=== PATIENT | female | born 1980 | race Caucasian/White ===

== ENCOUNTER 2019-04-25 02:16 | Observation (INO) ==
--- NOTE | 2019-04-25 02:51 | ERNOTE ---
<Bladimir Rubin - Last Filed: 04/25/19 07:51> Medical Problem HPI - General Chief Complaint: Drug Overdose Time Seen by Provider: 04/25/19 02:28 Source: patient, family Exam Limitations: clinical condition - Immun/Allergies/Home Medications Immunizations: IMMUNIZATION HX Immunizations Up to Date Yes History of Influenza Vaccine No Allergies/Adverse Reactions: Allergies No Known Drug Allergies Allergy (Verified 04/25/19 02:26) Home Medications: HOME MEDICATIONS Escitalopram Oxalate [Lexapro] 20 mg PO DAILY 01/01/16 [Last Taken Unknown] - History of Present History Narrative: Patient brought in by her mother stating the patient take an overdose of her medications approximately an hour [employer]OUT WORK[employer]. Patient states she has taken 8 of her 150 mg trazodone. If on patient is asked directly she does not give a straight answer on why she took them or what effect she expected them to have. she has been hearing voices lately but cannot really state what those voices are saying. Her mother states that lately she has not been recognizing her parents or others as who they are and even states that she does not know who she herself is some days. Timing: getting worse Severity: moderate Review of Systems - Review of Systems Constitutional: Present: recent illness - just not feeling well.. Absent: fever EYE: Absent: vision changes ENT: Absent: nose congestion, nasal drainage Respiratory: Present: shortness of breath - mild, cough Cardiology: Absent: chest pain Gastrointestinal/Abdominal: Present: constipation. Absent: nausea, vomiting, abdominal pain Genitourinary: Absent: frequency, pain, dysuria Musculoskeletal: Present: back pain - chronic Skin: Present: rash - a few red spots on her neck, getting better. Neurological: Absent: headache, dizziness/light-headedness Endocrine: Absent: excessive sweating Hematologic/Lymphatic: Absent: easy bruising Psych: Present: See HPI, depressed, emotional problems Medical History (Last Reviewed 04/25/19 @ 02:47 by Bladimir Rubin DO) Anxiety Hx of head injury Surgical History: Surgical History (Last Reviewed 04/25/19 @ 02:47 by Bladimir Rubin DO) History of rib fracture (Acute) Hx of tonsillectomy (Acute) Family History: Family History (Last Reviewed 04/25/19 @ 02:47 by Bladimir Rubin DO) Father Hypertension Social History: (Last Reviewed 04/25/19 @ 02:47 by Bladimir Rubin DO) Tobacco: Smoking Status: Current every day smoker Smoking cigarettes per day: 10 Alcohol: alcohol intake: former Substance Use: substance use type: marijuana, amphetamines Physical Exam - Physical Exam General Appearance: Present: wd/wn, no apparent distress, other - Patient is alert although she keeps her eyes closed unless asked to open them. Head Exam: Present: normal inspection, no evidence of injury Eye Exam: PERRL: bilateral - Although pupils are rather small, EOMI: bilateral Ears, Nose, Throat: Present: normal ENT inspection, normal pharynx Neck: Present: normal inspection, nontender, supple, full range of motion Respiratory: Present: no respiratory distress, normal breath sounds, no accessory muscle use, chest nontender, lungs clear Cardiovascular/Chest: Present: regular rate, rhythm, systolic murmur - 08/22 Gastrointestinal/Abdominal: Present: normal bowel sounds, nontender, nondistended, soft Extremity Exam: Present: normal inspection, normal range of motion, no edema Neurological Exam: Present: 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 Somewhat tangential conversations. Skin Exam: Present: warm/dry, other - Few small papules on the left side of the patient's neck no vesicles Lymphatic Exam: Present: no adenopathy Progress - Results and Orders Patient's Lab Results:: I have reviewed the patient's lab results. - Vital Signs Patient's Vital Signs:: I have reviewed the patient's vital signs. Vital Signs: Vital Signs 04/25/19 02:22 Temperature 36 C Pulse Rate 87 Respiratory Rate 16 Blood Pressure 154/83 H O2 Sat by Pulse Oximetry 100 - EKG EKG #1 EKG: NSR, nonspecific ST T wave changes, other - QT long at 445 - X-Ray X-Ray #1 X-Ray: chest Interpretation: Interp. by me X-ray Comments: No infiltrate or effusion - Progress/Reassessment Chief Complaint: Drug Overdose Progress:: Improved - Transfer of Care Physician Sign Out: Bladimir Rubin Receiving Physician: Melvin Merino Pending Results: Physician/consult arrival Expected Disposition: Transfer Plan - Plan Plan: [facility] evaluation and probable transfer to psychiatric facility. Departure Clinical Impression: Hallucinations Overdose Qualifiers: Encounter type: initial encounter Injury intent: undetermined intent Qualified Code(s): T50.904A - Poisoning by unspecified drugs, medicaments and biological substances, undetermined, initial encounter - Departure Disposition: Still a patient Condition: Good <Melvin Merino - Last Filed: 04/25/19 13:14> Medical Problem HPI - Immun/Allergies/Home Medications Immunizations: IMMUNIZATION HX Immunizations Up to Date Yes History of Influenza Vaccine No Medical History (Last Reviewed 04/25/19 @ 02:47 by Bladimir Rubin DO) Anxiety Hx of head injury Surgical History: Surgical History (Last Reviewed 04/25/19 @ 02:47 by Bladimir Rubin DO) History of rib fracture (Acute) Hx of tonsillectomy (Acute) Family History: Family History (Last Reviewed 04/25/19 @ 02:47 by Bladimir Rubin DO) Father Hypertension Social History: (Last Reviewed 04/25/19 @ 02:47 by Bladimir Rubin DO) Tobacco: Smoking Status: Current every day smoker Smoking cigarettes per day: 10 Alcohol: alcohol intake: former Substance Use: substance use type: marijuana, amphetamines Progress - Results and Orders Patient's Lab Results:: I have reviewed the patient's lab results. - Vital Signs Patient's Vital Signs:: I have reviewed the patient's vital signs. Vital Signs: Vital Signs 04/25/19 05:04 04/25/19 05:23 04/25/19 05:49 Pulse Rate 80 78 79 Respiratory Rate 16 14 18 Blood Pressure 108/60 104/58 100/57 O2 Sat by Pulse Oximetry 97 96 97 04/25/19 06:33 04/25/19 07:38 04/25/19 08:18 Pulse Rate 72 102 H 81 Respiratory Rate 14 21 H 13 Blood Pressure 101/56 105/61 102/49 O2 Sat by Pulse Oximetry 97 96 95 04/25/19 09:09 Pulse Rate 85 Respiratory Rate 17 Blood Pressure 99/51 O2 Sat by Pulse Oximetry 97 - EKG EKG #2 EKG: NSR EKG read: Interp. by me EKG Comments: NSR ate 70. Patient still with prolonged QT. - Progress/Reassessment Progress Note-Subjective: 04/25/19 13:06 Patient checked out to me by Dr Rubin at am shift change. ROSALINDA felt she needed admission but she could not be cleared due to somnolence and ongoing prolonged QT. I spoke with her and she would not open her eyes but she answered my questions. She cannot be cleared throughout ED and needs observation. Poison control contacted. I do not feel she needs bicarb drip at this time and she is asymptomatic and QT is just over 100. Bicarb drip indicated until QT less sangeeta 100, at this time QT 101 so I think ongoing observation is indicated. D/W Dr Moody who is agreeable to admit to SCU. Patient understands. [facility]INDA is looking for placement. Please see Dr Rubin's note for full H&P. 04/25/19 13:14
[2019-04-25 02:55] LABS: Hematocrit 37.3 % (37.0-47.0); Hemoglobin 12.4 gm/dL (12.5-16.0); Mean Cell Volume 96.6 fl (78-100); Mean Corpuscular Hemoglobin 32.1 pg (27-31); Mean Corpuscular Hgb Conc 33.2 g/dl (32-36); Mean Platelet Volume 10.1 fl (8-12.5); Neutrophil # 4.7 K/mm3 (1.3-6.0); Neutrophil % 51.1 % (42-75.0); Platelet Count 310 K/mm3 (150-450); Red Blood Count 3.86 M/mm3 (4.2-5.4); Red Cell Distribution Width 12.8 % (11.5-14.0); White Blood Count 9.2 K/mm3 (4.0-10.5)
[2019-04-25 03:05] LABS: Urine Appearance Clear (CLEAR); Urine Bacteria None Seen; Urine Bilirubin Negative (NEGATIVE); Urine Blood Negative /ul (NEGATIVE); Urine Color Yellow; Urine Ketone Negative (NEGATIVE); Urine Nitrite Negative (NEGATIVE); Urine Protein Negative (NEGATIVE); Urine RBC None Seen /hpf (0-5); Urine Urobilinogen Normal (NORMAL); Urine WBC 0-5 /hpf (0-5); Urine pH 6.5 pH (5.0-7.0)
[2019-04-25 03:08] LABS: ALT 9 U/L (19-67); AST 10 U/L (0-48); Albumin * 3.5 gm/dl (3.4-5.0); Alkaline Phosphatase * 62 U/L (50-170); Anion Gap 10.2 mmol/L (6.8-13.8); BUN/Creatinine Ratio 10.3 (9.0-21.6); Bilirubin, Total 0.2 mg/dL (0.0-1.1); Blood Urea Nitrogen 8 mg/dL (3-23); Ca. Corrected For Albumin 7.7 mg/dL (8.4-10.2); Calcium * 7.6 mg/dL (7.9-10.9); Chloride 106 mmol/L (97-106); Glucose * 139 mg/dL (70-110); Potassium 3.2 mmol/L (3.4-4.6); Salicylate Less than 2.8 mg/dL (2.8-20.0); Sodium 143 mmol/L (132-142); Total Protein 6.4 gm/dL (6.2-8.2)
[2019-04-25 03:10] LABS: Cocaine Ur Negative (NEGATIVE); Urine Barbiturate Negative (NEGATIVE); Urine Benzodiazepines Negative (NEGATIVE); Urine Opiates Negative (NEGATIVE); Urine PCP Negative (NEGATIVE); Urine THC Positive (NEGATIVE)
[2019-04-25 13:10] LABS: Albumin * 3.2 gm/dl (3.4-5.0); Anion Gap 9.6 mmol/L (6.8-13.8); BUN/Creatinine Ratio 11.4 (9.0-21.6); Bilirubin, Total 0.2 mg/dL (0.0-1.1); Ca. Corrected For Albumin 8.5 mg/dL (8.4-10.2); Calcium * 8.2 mg/dL (7.9-10.9); Potassium 3.6 mmol/L (3.4-4.6); Total Protein 5.8 gm/dL (6.2-8.2)
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
--- NOTE | 2019-04-26 14:17 | CONS ---
[facility] - General Date of Service: 04/26/19 Narrative: Gloria is a 38 year old female with a reported history of depression who presented to emergency department yesterday after intentionally overdosing on trazodone. Dr. Moody requested psychiatry consult. Gloria states she has been feeling more and more depressed over the last two years. She notes she has been taking Lexapro, which is prescribed by her primary child care nurse, for several years and it is not helping with depression anymore. She feels depressed every day. She has trouble remembering things and reports she does not feel like herself. She states she has been seeing people and hearing voices that are not there. She notes the voices often belong to people she knows but those people are not present when she hears the voices. She states the voices do not tell her to do things. She states she sees people through windows. She notes the voices and the people she were seeing were faint and blurry at first but seem to be growing stronger as the weeks pass. She started hearing voices and seeing people approximately two weeks ago. She initially states that nobody else can see the people she sees or hear the voices she hears then she states that her father (with whom she is living) has responded to those voices; she also states that she knows other family members can hear the voices but just won't admit to her that they can hear the voices because they want her to think she is crazy. She notes she feels overwhelmed because she just does not know who she is anymore. She notes she has no energy. She began taking Adderall and using methamphetamine several weeks ago to help improve her depression and energy level. She states she stopped using methamphetamine and Adderall approximately 2 weeks ago. Of note, urine was positive for amphetamines and marijuana. She states she sees the people and hears the voices even when she is not using Adderall and methamphetamine. She feels anxious most days. She feels irritable frequently. She has been having trouble sleeping the last few weeks. She notes she has only been sleeping every other night. She denies sustained grandiosity, excessive energy, or rapid speech. She notes she has had a high libido but states that is her baseline. She notes she also smokes marijuana most nights to help with her anxiety. Her appetite is fair. She denies alcohol consumption stating she stopped drinking alcohol several years ago. Gloria states she took an overdose of trazodone last night because she has been having trouble with her memory and mood and she thought that taking an overdose of trazodone would help her to receive treatment. She is not sure if she was attempting to commit suicide when she took the trazodone last night. Gloria denies suicidal ideation today. She denies homicidal ideation. Gloria states she has never been and does not have any children. She notes she has been staying with her father but states she does not feel like she has a home to go to. Gloria states she is not currently receiving treatment from a counselor or other knife setter assembler. She states she has been hospitalized on a psychiatric unit one time approximately 8 years ago after she attempted to commit suicide by cutting her wrist. Per nursing staff, Gloria's mother told nurse today that Gloria told her mother that she wanted to commit suicide. Per nursing staff, Gloria's family also reported that Gloria was to a woman and went through a divorce in the recent past. Since that time, staff report that Gloria's family has noticed a gradual worsening in depression. Staff also report that Gloria told the nurse that Gloria would say anything she needed to say just so she could leave the hospital. Source: patient, RN/MD, RN notes reviewed - History of Present Illness Timing/Duration: getting worse Associated Symptoms: other - fatigue Allergies/Adverse Reactions: Allergies No Known Drug Allergies Allergy (Verified 04/25/19 15:30) Home Medications: Home Medications Medication Instructions Recorded Last Taken Escitalopram Oxalate [Lexapro] 20 mg PO DAILY 01/01/16 Unknown Procedures Application of splint (07/19/99) Contrast arthrogram (07/09/12) Dilation of Left Ureter with Intraluminal Device, Via Natural or Artificial Opening Endoscopic (08/05/15) Drainage of Abdomen Skin, External Approach (01/01/16) Drainage of Genitalia Skin, External Approach (05/01/16) Excision of semilunar cartilage of knee (06/09/00) Fragmentation in Left Ureter, Via Natural or Artificial Opening Endoscopic (08/05/15) Injection of anesthetic into spinal canal for analgesia (05/23/13) Injection of other agent into spinal canal (11/08/12) Injection of steroid (11/08/12) Other local excision or destruction of lesion of joint, shoulder (08/06/12) Other repair of the cruciate ligaments (06/09/00) Removal of Drainage Device from Ureter, Percutaneous Endoscopic Approach (08/12/15) Rotator cuff repair (08/06/12) Tonsillectomy with adenoidectomy (08/17/06) Review of Systems - Review of Systems Generalized/Overall Review: Absent: No Symptoms Reported - fatigue Neurological: Present: Anxiety, Depressed Physical Examination - Exam Vital Signs: Vital Signs - Last Taken Temp 36.6 C 04/26/19 13:01 Pulse 82 04/26/19 13:01 Resp 16 04/26/19 13:01 BP 120/75 04/26/19 13:01 Pulse Ox 93 04/26/19 13:01 O2 Oxygen Delivery Method Room Air Constitutional: Present: Alert, Oriented x3. Absent: Cooperative - Guarded Appearance: Present: appropriate appearance, impaired insight. Absent: appropriate insight Eye contact: Present: normal speech, other - Guarded Thoughts: Present: other - patient reports visual and auditory hallucinations. - Results and Findings: Narrative: Recommend transfer for psychiatric hospitalization due to recent suicide attempt, patient telling her mother today that she was suicidal, and patient report of hallucinations with severe depression. Lab/Microbiology results last 24 hrs: Culture 04/25/19 02:50 Urine Culture - Preliminary Urine,Catheterized No Growth - Assessments/Findings (1) Overdose Problem: Acute Qualifiers: Encounter type: initial encounter Injury intent: undetermined intent Qualified Code(s): T50.904A - Poisoning by unspecified drugs, medicaments and biological substances, undetermined, initial encounter (2) Hallucinations Problem: Acute
[2019-04-26] MEDS ORDERED: diphenhydrAMINE HCL/ZINC ACET 28.3 APPL TUBE TP PRN (19:57)
--- NOTE | 2019-04-26 19:57 | PN ---
Subjective - Date and Time Seen Date: 04/26/19 Time: 19:45 Subjective Narrative: Patient still somnolent overnight, slept most of the days. Patient awakes easily and is conversant. No acute events and vital signs been stable. EKG changes returned to normal. Initially patient was agreeable with voluntary inpatient psychiatric placement but as the day went on patient became agitated and upset and refused voluntary status. States that she wanted to go home, endorsed suicidal ideation, patient states that she will lie if asked about wanting to hurt herself. Slightly anxious from not be noted outside smoke but no other problems at this time. Objective - Review of Systems Generalized/Overall Review: Denies: Weakness, Chills, Fever EENTM: Reports: No Symptoms Reported Respiratory: Denies: Cough, Shortness of Breath Cardiac: Denies: Chest Pain, Palpitations Abdominal: Denies: Nausea, Vomiting Genitourinary Symptoms: Reports: No Symptoms Reported Musculoskeletal Complaints: Reports: No Symptoms Reported Neurological: Reports: No Symptoms Reported Skin: Reports: No Symptoms Reported Endocrine: Reports: No Symptoms Reported - Vitals Vitals: Last Vital Signs Temp 36.7 C 04/26/19 16:52 Pulse 64 04/26/19 16:52 Resp 14 04/26/19 16:52 BP 111/69 04/26/19 16:52 Pulse Ox 98 04/26/19 16:52 - Exam Constitutional: Present: Alert, Oriented x3. Absent: Cooperative - Refuses to answer questions Neck: Present: non-tender, supple Respiratory: Present: lungs clear, normal breath sounds Cardiovascular/Chest: Present: regular rate, rhythm, systolic murmur - Low grade 2 systolic murmur, likely flow murmur Abdomen: Present: soft, nontender /Rectal: Present: Exam deferred Skin Exam: Present: skin rash - Slight irritation over left lower extremity, looks like contact dermatitis, pruritic Appearance: Present: impaired insight Eye contact: Present: refused to answer, belligerent, uncooperative Thoughts: Present: no apparent hallucination Assessment/Plan Plan Narrative: Patient medically cleared now for inpatient psychiatric facility. Patient no longer voluntary though, will get court order to have her placed due to patient safety risks. Patient slightly anxious as she is unable to go outside and smoke or go home and see her animals before going to the facility. Explained to her that she needed to get help which she initially had agreed upon but later changed her mind on due to disagreement with her mom. Will hold her here while she is to be evaluated by Psych here. Consult placed QT back to normal with repeat EKG Current ongoing suicidal thoughts, endorsed them to family and nursing staff. Rash on LLE. Will order topical steroid cream. Waiting for placement, patient to remail here until approved. Nurse will call with questions or concerns. - Problems/Diagnosis (1) Depression with suicidal ideation Problem: Acute (2) Overdose Problem: Resolved Qualifiers: Encounter type: initial encounter Injury intent: undetermined intent Qualified Code(s): T50.904A - Poisoning by unspecified drugs, medicaments and biological substances, undetermined, initial encounter (3) Prolonged QT interval Problem: Resolved (4) Substance abuse Problem: Acute (5) Rash Problem: Acute
[2019-04-26] MEDS: TRIAMCINOLONE ACETONIDE 80 APPL TUBE TP PRN (20:23)
[2019-04-27] MEDS: TRIAMCINOLONE ACETONIDE 80 APPL TUBE TP PRN (09:31)
[2019-04-27] MEDS: IBUPROFEN 600 MG TABLET PO PRN (13:11)
[2019-04-27] MEDS: predniSONE 20 MG TABLET PO SCH (16:49)
[2019-04-27] MEDS: diphenhydrAMINE HCL 50 MG CAPSULE PO PRN (21:14)
--- NOTE | 2019-04-27 23:59 | PN ---
Subjective - Date and Time Seen Date: 04/27/19 Time: 14:45 Subjective Narrative: Gloria reports rash on left leg that itches. Otherwise doing well. Awaiting psych inpatient acceptance for transfer. No fever, chills, nausea, or vomiting. She has been medically cleared for transfer. Objective - Vitals Vitals: Last Vital Signs Temp 36.9 C 04/27/19 19:00 Pulse 78 04/27/19 19:00 Resp 16 04/27/19 19:00 BP 123/70 04/27/19 19:00 Pulse Ox 99 04/27/19 19:00 - Exam Constitutional: Present: Alert, Oriented x3, Cooperative ENT Exam: Present: hearing grossly normal Respiratory: Present: lungs clear, normal breath sounds Cardiovascular/Chest: Present: regular rate, rhythm, no murmur Skin Exam: Present: other - Multiple hives (erythematous areas of induration) on left lower leg. No drainage Assessment/Plan Plan Narrative: 1) Continue to await psych inpatient placement 2) Hives present, unknown cause. Will treat with oral prednisone and triamcinolone and benadryl prn. - Problems/Diagnosis (1) Depression with suicidal ideation Problem: Acute (2) Hives Problem: Acute
[2019-04-28] MEDS: predniSONE 20 MG TABLET PO SCH ×2 (04:35→16:08)
[2019-04-28] MEDS: IBUPROFEN 600 MG TABLET PO PRN (09:23)
[2019-04-28] MEDS: TRIAMCINOLONE ACETONIDE 80 APPL TUBE TP PRN (09:36)
--- NOTE | 2019-04-28 23:53 | PN ---
Subjective - Date and Time Seen Date: 04/28/19 Time: 18:30 Subjective Narrative: Gloria reports doing well. No concerns. Hives are improved. Still waiting on psych placement. Objective - Vitals Vitals: Last Vital Signs Temp 36.4 C 04/28/19 21:34 Pulse 78 04/28/19 21:34 Resp 16 04/28/19 21:34 BP 123/77 04/28/19 21:34 Pulse Ox 96 04/28/19 21:34 - Exam Constitutional: Present: Alert, Oriented x3, Cooperative Respiratory: Present: lungs clear, no respiratory distress Cardiovascular/Chest: Present: regular rate, rhythm, no edema, no murmur Abdomen: Present: Normal bowel sounds, soft, nontender, nondistended Skin Exam: Present: other - left lower leg with multiple hives, smaller than yesterday Assessment/Plan Plan Narrative: Hives improved, still waiting on psych placement. No changes today. - Problems/Diagnosis (1) Depression with suicidal ideation Problem: Acute (2) Hives Problem: Acute
[2019-04-29] MEDS: predniSONE 20 MG TABLET PO SCH ×2 (05:03→16:35)
[2019-04-29] MEDS: IBUPROFEN 600 MG TABLET PO PRN ×2 (14:26→21:00)
--- NOTE | 2019-04-29 17:13 | PN ---
Subjective - Date and Time Seen Date: 04/29/19 Time: 17:13 Subjective Narrative: Patient did well overnight, no acute events. Vital signs been stable and she has been more cooperative. Patient denies possible herself or others at this time. She is pleasant to converse with. Currently waiting placement. Objective - Review of Systems Generalized/Overall Review: Denies: Weakness, Chills, Fever EENTM: Reports: No Symptoms Reported Respiratory: Denies: Cough, Shortness of Breath Cardiac: Reports: Chest Pain, Palpitations Abdominal: Reports: No Symptoms Reported Genitourinary Symptoms: Reports: No Symptoms Reported Musculoskeletal Complaints: Reports: No Symptoms Reported Neurological: Reports: No Symptoms Reported Skin: Reports: No Symptoms Reported Endocrine: Reports: No Symptoms Reported - Vitals Vitals: Last Vital Signs Temp 36.2 C 04/29/19 16:41 Pulse 70 04/29/19 16:41 Resp 16 04/29/19 16:41 BP 126/78 04/29/19 16:41 Pulse Ox 100 04/29/19 16:41 - Exam Constitutional: Present: Alert, Oriented x3, Cooperative, Well developed, Well nourished ENT Exam: Present: hearing grossly normal. Absent: nasal congestion, nasal drainage Neck: Present: non-tender, supple Respiratory: Present: lungs clear, normal breath sounds Cardiovascular/Chest: Present: normal peripheral pulses, regular rate, rhythm Abdomen: Present: Normal bowel sounds, soft, nontender /Rectal: Present: Exam deferred Skin Exam: Present: normal color, warm/dry Appearance: Present: appropriate appearance, appropriate insight Eye contact: Present: cooperative, good eye contact, normal speech Thoughts: Present: normal thought pattern, no apparent hallucination Assessment/Plan Plan Narrative: 38-year-old female here due to court mandate for suicidal ideation with plan in place. Patient currently feels well, understands her circumstances and awaiting placement. Patient has history of suicidal attempts in the past, most recent being the week prior with overdose with trazodone. Patient states that it was more confused but answers them to ask herself but then became agitated and endorsed repeat attempted release. "Follow-up in the next few days. Continue current treatment plan. Nurse to call with questions or concerns. - Problems/Diagnosis (1) Depression with suicidal ideation Problem: Acute (2) Overdose Problem: Resolved Qualifiers: Encounter type: initial encounter Injury intent: undetermined intent Qualified Code(s): T50.904A - Poisoning by unspecified drugs, medicaments and biological substances, undetermined, initial encounter (3) Prolonged QT interval Problem: Resolved (4) Substance abuse Problem: Acute (5) Rash Problem: Acute
[2019-04-29] MEDS ORDERED: IBUPROFEN 600 MG TABLET ONE (20:59)
[2019-04-29] MEDS ORDERED: diphenhydrAMINE HCL 50 MG CAPSULE PO ONE (23:17)
[2019-04-29] MEDS: diphenhydrAMINE HCL 50 MG CAPSULE PO PRN (23:19)
[2019-04-30] MEDS: predniSONE 20 MG TABLET PO SCH (04:24)
--- NOTE | 2019-04-30 08:26 | DS ---
Transfer Discharge Summary - Diagnosis(s)/Problems (1) Depression with suicidal ideation Problem: Acute (2) Overdose Problem: Resolved (3) Prolonged QT interval Problem: Resolved (4) Substance abuse Problem: Acute (5) Rash Problem: Acute - Course Description of Stay: 38-year-old female with history of anxiety and depression admitted the ER doctor after overdose of trazodone. Patient taken 1 and half grams night before. Patient states that she was not considered herself but that she had recently been having auditory hallucinations and thought that this would be the best way to get help and answers for this problem. Patient was kept due to prolonged QT which resolved the next day. Initially patient had volunteered to check herself into inpatient psychiatric rehabilitation facility but later the next day she became agitated and stated that she would no longer do this. She stated that she would go home and kill herself if needed. She should continue to be irritated and refused to respond to questions. Psych was consulted who visited her, recommended that we do inpatient psychiatric treatment on an involuntary basis. Patient remained stable medically after her QT resolved. Over the weekend patient had no acute events, vital signs are stable. Yesterday patient was back to being very pleasant and easy to talk with. Stated that she knew that this had to be done and was willing to go. Placement obtained late last night. Patient currently being transferred, no changes in her chronic medicines other than holding her Lexapro at this time. Procedures Performed: none - Medications Medications: Active Medications Diphenhydramine HCl (Benadryl) 50 mg PO Q6H PRN PRN Reason: Itching Stop: 05/26/19 17:51 Last Admin: 04/29/19 23:19 Dose: 50 mg Documented by: Ibuprofen (Motrin) 600 mg PO Q6H PRN PRN Reason: Pain Stop: 05/27/19 12:54 Last Admin: 04/29/19 21:00 Dose: 600 mg Documented by: Prednisone (Prednisone) 40 mg PO Q12H JACKY Stop: 05/27/19 16:31 Last Admin: 04/30/19 04:24 Dose: 40 mg Documented by: Triamcinolone Acetonide (Kenalog 0.025% Cream) 1 appl TP BID PRN PRN Reason: Rash Stop: 05/26/19 21:01 Last Admin: 04/28/19 09:36 Dose: 1 appl Documented by: Zinc Acetate/Diphenhydramine (Benadryl Cream) 1 appl TP Q4H PRN PRN Reason: Itching Stop: 05/26/19 19:58 Last Admin: 04/27/19 13:52 Dose: 1 appl Documented by: - Disposition Disposition: Psychiatric Hospital Condition: Good Discharge Date: 04/30/19 Discharge Time: 08:26
[2019-04-30 11:55] VITALS: BP 117/84
== END 2019-04-30 11:50 ==
LOC: ER 02:16 → INTOOBSV 13:02 → SCU 13:02
PROVIDERS: ADMIT Family Medicine; ATTEND Family Medicine
CPT/HCPCS: 36415; 71010; 71045; 80053; 80307; 80329; 81001; 83519; 83735; 83880; 84703; 85025; 87081; 87086; 93005; 94760; 99285; G0378; G0480